=== PATIENT | female | born 1990 | race African-American/Black ===

== ENCOUNTER 2025-03-21 18:47 | Emergency (ER) | payer OTHER ==
[2025-03-21] MEDS ORDERED: Sulfameth/Trimethoprim DS 800-160mg TAB ONE (20:03)
[2025-03-21] MEDS ORDERED: Ketorolac Tromethamine 30 MG (1 mL) VIAL ONE (20:03)
[2025-03-21] MEDS ORDERED: Cephalexin 250 MG CAP ONE (20:04)
== END 2025-03-21 20:06 | disposition home or self-care (01) ==
LOC: CSHERS 18:47
DX: L73.2 Hidradenitis suppurativa (principal)
CPT/HCPCS: 96372; 99283; J1885